=== PATIENT | male | born 1990 | race Caucasian/White ===

== ENCOUNTER 2017-05-21 11:22 | Outpatient (CLI) | payer OTHER ==
[2017-05-21 12:48] LABS: HEMATOCRIT 42.5 % (36-52); HEMOGLOBIN 14.3 g/dL (12.0-18.0); MEAN CORPUSCULAR HEMOGLOBIN 32 pg (27-31); MEAN CORPUSCULAR HGB CONC 34 g/dL (33-37); MEAN CORPUSCULAR VOLUME 96 fL (80-94); PLATELET COUNT (AUTO) 218 K/uL (140-450); RED BLOOD CELL COUNT(AUTO) 4.45 MIL/uL (4.20-6.10); RED CELL DISTRIBUTION WIDTH 11.6 % (11.6-13.7); WHITE BLOOD COUNT (AUTO) 2.1 K/uL (4.8-10.8)
[2017-05-21 13:12] LABS: EOSINOPHILS % (MANUAL) 2 % (0-4); LYMPHOCYTES % (MANUAL) 57 % (20-46); MONOCYTES % (MANUAL) 10 % (5-12); NEUTROPHILS % (MANUAL) 31 (43-65)
== END 2017-05-21 21:14 | disposition home or self-care (01) ==
LOC: MLB 11:22
PROVIDERS: ATTEND Family Medicine
DX: Z00.01 Encounter for general adult medical examination with abnormal findings (principal)
CPT/HCPCS: 36415; 85025